=== PATIENT | male | born 1995 | race Caucasian/White ===

== ENCOUNTER 2016-04-03 05:12 | Inpatient (IN) | payer OTHER ==
[2016-04-02 08:33] LABS: HEMATOCRIT 49.2 % (36.0-47.0); MEAN CELL VOLUME 83 fl (80.0-95.0); MEAN CORPUSCULAR HEMOGLOBIN 29 pg (26.0-32.0); MEAN CORPUSCULAR HGB CONC 35 g/dl (33.0-37.0); MEAN PLATELET VOLUME 10.7 fl (7.4-10.4); PLATELET COUNT 191 K/mm3 (130-400); RED BLOOD COUNT 5.94 M/mm3 (4.20-5.60); WHITE BLOOD COUNT 5.5 K/mm3 (4.8-10.8)
[2016-04-02 08:41] LABS: CALCIUM 10.2 mg/dL (8.4-10.2); CREATININE, serum 0.88 mg/dL (0.66-1.25); POTASSIUM 4.3 mmol/L (3.4-5.0)
[2016-04-03] VITALS (11 sets, daily range): BP systolic 127–158; BP diastolic 64–85; PULSE 50–95; TEMP 97.3–98.3
[~2016-04-03] VITALS: Ht 180.3 cm; Wt 84.6 kg
[2016-04-03 06:18] LABS: HEMATOCRIT 47.9 % (36.0-47.0); HEMOGLOBIN 16.6 g/dl (12.5-16.1); MEAN CELL VOLUME 82 fl (80.0-95.0); MEAN CORPUSCULAR HEMOGLOBIN 28 pg (26.0-32.0); MEAN CORPUSCULAR HGB CONC 35 g/dl (33.0-37.0); MEAN PLATELET VOLUME 10.7 fl (7.4-10.4); PLATELET COUNT 194 K/mm3 (130-400); RED BLOOD COUNT 5.87 M/mm3 (4.20-5.60); REDCELL DISTRIBUTION WIDTH-CV 11.9 % (11.5-14.5)
[2016-04-04 01:55] VITALS: BP 154/69; PULSE 90; TEMP 98.2
[2016-04-04 04:51] VITALS: BP 137/76; PULSE 91; TEMP 98
[2016-04-04 11:10] VITALS: BP 119/67; PULSE 100; TEMP 97.9
[2016-04-04 14:40] VITALS: BP 135/77; PULSE 72; TEMP 97.4
[2016-04-04 18:05] VITALS: BP 133/69; PULSE 82; TEMP 98.7
[2016-04-04 21:43] VITALS: BP 144/66; PULSE 85
[2016-04-05 04:12] VITALS: BP 135/70; PULSE 85; TEMP 98.2
[2016-04-05 07:57] LABS: HEMATOCRIT 37.7 % (36.0-47.0); MEAN CELL VOLUME 85 fl (80.0-95.0); MEAN CORPUSCULAR HEMOGLOBIN 29 pg (26.0-32.0); MEAN CORPUSCULAR HGB CONC 33 g/dl (33.0-37.0); MEAN PLATELET VOLUME 10.7 fl (7.4-10.4); PLATELET COUNT 175 K/mm3 (130-400); RED BLOOD COUNT 4.42 M/mm3 (4.20-5.60); REDCELL DISTRIBUTION WIDTH-CV 12.1 % (11.5-14.5); WHITE BLOOD COUNT 10.9 K/mm3 (4.8-10.8)
[2016-04-05 08:01] LABS: HEMOGLOBIN 12.6 g/dl (12.5-16.1)
[2016-04-05 08:08] LABS: CALCIUM 9.5 mg/dL (8.4-10.2); CREATININE, serum 0.82 mg/dL (0.66-1.25); POTASSIUM 3.8 mmol/L (3.4-5.0)
[2016-04-05 10:34] VITALS: BP 136/70; PULSE 81; TEMP 98.7
[2016-04-05 15:47] VITALS: BP 135/81; PULSE 80; TEMP 98.4
[2016-04-05 19:00] VITALS: BP 128/80; PULSE 85; TEMP 97.7
[2016-04-05 21:32] VITALS: BP 135/66; PULSE 82; TEMP 98.5
[2016-04-06 01:47] VITALS: BP 146/67; PULSE 79; TEMP 98.5
[2016-04-06 05:07] VITALS: BP 124/72; PULSE 76; TEMP 97.2
[2016-04-06 06:02] LABS: HEMOGLOBIN 12.2 g/dl (12.5-16.1)
[2016-04-06 06:04] LABS: HEMATOCRIT 36.3 % (36.0-47.0)
[2016-04-06 09:06] VITALS: BP 134/81; PULSE 88; TEMP 98.4
== END 2016-04-06 12:30 | disposition home or self-care (01) | DRG 660 ==
LOC: SDCO 05:12 → EDSTATUS 07:30 → SDCO 07:30 → SURG 07:30 → SDCO 14:52 → SURG 14:56
PROVIDERS: Urology
PROC: 0TS64ZZ Reposition Right Ureter, Percutaneous Endoscopic Approach (ICD-10-PCS; principal; 2016-04-03 07:30)
PROC: 0T768DZ Dilation of Right Ureter with Intraluminal Device, Via Natural or Artificial Opening Endoscopic (ICD-10-PCS; principal; 2016-04-03 07:30)
PROC: 8E0W4CZ Robotic Assisted Procedure of Trunk Region, Percutaneous Endoscopic Approach (ICD-10-PCS; principal; 2016-04-03 07:30)
PROC: 0TB74ZX Excision of Left Ureter, Percutaneous Endoscopic Approach, Diagnostic (ICD-10-PCS; principal; 2016-04-03 07:30)
DX: N13.0 Hydronephrosis with ureteropelvic junction obstruction (principal); D50.0 Iron deficiency anemia secondary to blood loss (chronic)
CPT/HCPCS: A4315; A9284; C1769; C2617; J0690; J1100; J1170; J1885; J2270; J2405; J2704; J2710; J3010; J7120

== ENCOUNTER → 2016-07-30 | Outpatient (CLI) | payer OTHER | LOC: COL.RAD 07:47 | DX: N13.0 Hydronephrosis with ureteropelvic junction obstruction (principal) | CPT/HCPCS: A9562 ==